=== PATIENT | male | born 1990 | race Caucasian/White ===

== ENCOUNTER 2024-07-24 14:39 | Outpatient (CLI) | payer OTHER, SELFPAY | END 2024-07-24 14:40 | disposition home or self-care (01) | PROVIDERS: PCP Family Medicine; Visit Provider Family Medicine | DX: Z13.220 Encounter for screening for lipoid disorders (principal); Z13.228 Encounter for screening for other metabolic disorders; Z11.1 Encounter for screening for respiratory tuberculosis | CPT/HCPCS: 80048; 80061; 86480 ==